=== PATIENT | female | born 1935 | race Hispanic/Latino ===

== ENCOUNTER 2017-11-01 15:50 | Inpatient (IN) | payer MEDICARE ==
[~2017-11-01] VITALS: Ht 154.9 cm; Wt 75.1 kg
[~2017-11-01 15:50] MED LIST: AEC81 PO; ALLO300T2 PO; CALC-190 PO; CARB1TAB20 PO; CLOP75TA32 PO; DULO20CA17 PO; ISOS30TA6 PO; LIOT5TAB8 PO; LISI10TA7 PO; METO100T14 PO; MIRT7.5T11 PO; NIAC-8 PO; PANT40TA PO; PIOG30TA26 PO; PYRI50TA9 PO; RANO500T2 PO; SAXA5TAB PO; SIMV10TA6 PO; TRAZ-144 PO
[2017-11-01 16:50] LABS: BASOPHILS % (AUTO) 0.2 % (0.0-5.0); EOSINOPHILS % (AUTO) 2.3 % (0.0-8.0); HEMATOCRIT 24.4 % (36-48); LYMPHOCYTES % (AUTO) 12.8 % (21.0-51.0); MEAN CORPUSCULAR HEMOGLOBIN 36.1 pg (27.0-33.0); MEAN CORPUSCULAR HGB CONC 32.7 g/dL (32.0-36.0); MEAN CORPUSCULAR VOLUME 110.3 fL (79-99); MONOCYTES % (AUTO) 6.8 % (3.0-13.0); NEUTROPHILS % (AUTO) 77.9 % (40.0-77.0); NUCLEATED RED BLOOD CELLS 0.2 % (0.0-0.19); PLATELET COUNT (AUTO) 153 K/uL (130-400); RED BLOOD CELL COUNT(AUTO) 2.21 MIL/uL (4.00-5.50); RED CELL DISTRIBUTION WIDTH 18.4 % (11.0-15.5); WHITE BLOOD COUNT (AUTO) 7.6 K/uL (4.8-10.8)
[2017-11-01 16:57] LABS: CREATININE 7.4 mg/dL (0.5-1.5); POTASSIUM 4.8 mmol/L (3.5-5.1)
[2017-11-01 17:02] LABS: ALBUMIN 2.7 g/dL (3.5-5.0); BILIRUBIN,TOTAL 0.6 mg/dL (0.2-1.0); TOTAL PROTEIN, SERUM 6.9 g/dL (6.0-8.3)
[2017-11-01] MEDS ORDERED: MORPHINE SULFATE 2 MG/ML 1ML SYG ONE (18:58)
[2017-11-02 05:41] LABS: BASOPHILS % (AUTO) 0.7 % (0.0-5.0); EOSINOPHILS % (AUTO) 4.2 % (0.0-8.0); HEMATOCRIT 23.4 % (36-48); LYMPHOCYTES % (AUTO) 13.8 % (21.0-51.0); MEAN CORPUSCULAR HEMOGLOBIN 35.8 pg (27.0-33.0); MEAN CORPUSCULAR HGB CONC 32.4 g/dL (32.0-36.0); MEAN CORPUSCULAR VOLUME 110.6 fL (79-99); MONOCYTES % (AUTO) 5.9 % (3.0-13.0); NEUTROPHILS % (AUTO) 75.4 % (40.0-77.0); NUCLEATED RED BLOOD CELLS 0.1 % (0.0-0.19); PLATELET COUNT (AUTO) 148 K/uL (130-400); RED BLOOD CELL COUNT(AUTO) 2.11 MIL/uL (4.00-5.50); RED CELL DISTRIBUTION WIDTH 19.1 % (11.0-15.5); WHITE BLOOD COUNT (AUTO) 7.1 K/uL (4.8-10.8)
[2017-11-02 05:55] LABS: CARBON DIOXIDE 31 mmol/L (21-32); CHLORIDE 99 mmol/L (101-111); CREATININE 7.4 mg/dL (0.5-1.5); GLOMERULAR FILTR. RATE CALC 6 mL/min (>60); GLUCOSE,RANDOM 118 mg/dL (70-105); POTASSIUM 5.1 mmol/L (3.5-5.1); SODIUM SERUM 137 mmol/L (136-145)
[2017-11-02 05:57] LABS: UREA NITROGEN, BLOOD 81 mg/dL (7-18)
[2017-11-02 06:07] LABS: ALBUMIN 2.8 g/dL (3.5-5.0); ASPARTATE AMINOTRANSFERASE 17 U/L (10-37); BILIRUBIN,TOTAL 0.6 mg/dL (0.2-1.0); TOTAL PROTEIN, SERUM 6.8 g/dL (6.0-8.3)
[2017-11-02 06:09] LABS: ALANINE AMINOTRANSFERASE < 6 U/L (12-78)
[2017-11-02] MEDS ORDERED: SODIUM CHLORIDE 0.9% 1000ML 1,000 ML IV ONE (13:10)
[2017-11-02] MEDS ORDERED: SODIUM CHLORIDE 0.9% 250 ML IV ONE (13:11)
[2017-11-02] MEDS ORDERED: ALBUMIN (HUMAN) 25% 100 ML IV PRN (14:30)
[2017-11-02] MEDS ORDERED: 0.9% SODIUM CHLORIDE 250 ML IV BAG IV PRN (14:30)
[2017-11-02] MEDS ORDERED: SODIUM CHLORIDE 0.9% 1000ML 1,000 ML IV PRN (14:30)
[2017-11-02] MEDS ORDERED: EPOETIN ALFA 10,000 UNIT/ML VIAL SQ SCH (15:00)
[2017-11-02 17:00] VITALS: BP 163/74
[2017-11-02] MEDS ORDERED: LISI10TA7 PO (19:25)
[2017-11-02 21:00] VITALS: BP 147/71
[2017-11-03] VITALS (7 sets, daily range): BP systolic 116–155; BP diastolic 44–80
[2017-11-03 04:08] LABS: HEMATOCRIT 29.6 % (36-48); MEAN CORPUSCULAR HEMOGLOBIN 34.4 pg (27.0-33.0); MEAN CORPUSCULAR HGB CONC 34.2 g/dL (32.0-36.0); MEAN CORPUSCULAR VOLUME 100.5 fL (79-99); NUCLEATED RED BLOOD CELLS 0.1 % (0.0-0.19); PLATELET COUNT (AUTO) 148 K/uL (130-400); RED BLOOD CELL COUNT(AUTO) 2.95 MIL/uL (4.00-5.50); RED CELL DISTRIBUTION WIDTH 21.9 % (11.0-15.5); WHITE BLOOD COUNT (AUTO) 9.2 K/uL (4.8-10.8)
[2017-11-03 04:26] LABS: CREATININE 4.3 mg/dL (0.5-1.5); PHOSPHORUS 5.7 mg/dL (2.5-4.9); POTASSIUM 4.2 mmol/L (3.5-5.1)
[2017-11-03 04:53] LABS: BAND NEUTROPHILS % (MANUAL) 4 % (0-2); EOSINOPHILS % (MANUAL) 2 % (1-6); LYMPHOCYTES % (MANUAL) 6 % (22-44); MAN.DIFF COMMENT-IMPRESSION MANUAL DIFFERENTIAL; MONOCYTES % (MANUAL) 3 % (2-9); PLATELET MORPHOLOGY COMMENT ADEQUATE; SEGMENTED NEUTROPHILS % 85 % (40-70)
[2017-11-03] MEDS ORDERED: EPOETIN ALFA 10,000 UNIT/ML VIAL SQ SCH (19:15)
[2017-11-04 03:23] VITALS: BP 128/60
[2017-11-04] MEDS ORDERED: PHARMACY COMMUNICATION MISC SCH (05:00)
[2017-11-04] MEDS ORDERED: ALPRAZOLAM 0.25 MG TABLET PO PRN (06:45)
[2017-11-04 08:00] VITALS: BP 147/57
[2017-11-04] MEDS: DULOXETINE HCL 20 MG PO SCH (09:00)
[2017-11-04] MEDS: LIOTHYRONINE SODIUM 5 MCG PO SCH (09:00)
[2017-11-04] MEDS: ASPIRIN 81 MG EC TAB PO SCH (09:15)
[2017-11-04] MEDS: METOPROLOL TARTRATE 50 MG TAB PO SCH ×2 (09:16→20:09)
[2017-11-04] MEDS: PYRIDOXINE HCL 50 MG TABLET PO SCH (09:16)
[2017-11-04] MEDS: CLOPIDOGREL BISULFATE 75 MG TAB PO SCH (09:16)
[2017-11-04] MEDS: ISOSORBIDE MONO 30MG TAB SR PO SCH (09:16)
[2017-11-04] MEDS: RANOLAZINE 500 MG TAB.SR.12H PO SCH ×2 (09:16→20:09)
[2017-11-04] MEDS: LISINOPRIL 10 MG TABLET PO SCH (09:17)
[2017-11-04] MEDS: PANTOPRAZOLE SODIUM 40 MG TABLET.DR PO SCH (09:17)
[2017-11-04] MEDS: PIOGLITAZONE HCL 30 MG TAB PO SCH (09:27)
[2017-11-04 11:00] VITALS: BP 132/65
[2017-11-04] MEDS ORDERED: ACETAMINOPHEN-CODEINE 300/30MG TAB PO PRN ×2 (15:30)
[2017-11-04 16:00] VITALS: BP 141/73
[2017-11-04 19:00] VITALS: BP 122/84
[2017-11-04] MEDS ORDERED: ALLOPURINOL 300 MG TABLET PO SCH (21:00)
[2017-11-04] MEDS ORDERED: ATORVASTATIN CALCIUM 10 MG TABLET PO SCH (21:00)
[2017-11-04] MEDS ORDERED: NIACIN 500 MG SRTAB PO SCH (21:00)
[2017-11-04] MEDS ORDERED: MIRTAZAPINE 15 MG TABLET PO SCH (21:00)
[2017-11-04] MEDS ORDERED: TRAZODONE HCL 50 MG TAB PO SCH (21:00)
[2017-11-04 23:00] VITALS: BP 103/51
[2017-11-05 03:00] VITALS: BP 113/53
[2017-11-05] MEDS ORDERED: LACTULOSE 20 GM/30 ML UDCUP PO PRN ×2 (07:00→09:30)
[2017-11-05 07:05] VITALS: BP 106/44
[2017-11-05] MEDS: RANOLAZINE 500 MG TAB.SR.12H PO SCH (08:51)
[2017-11-05] MEDS: CLOPIDOGREL BISULFATE 75 MG TAB PO SCH (08:51)
[2017-11-05] MEDS: PANTOPRAZOLE SODIUM 40 MG TABLET.DR PO SCH (08:52)
[2017-11-05] MEDS: ISOSORBIDE MONO 30MG TAB SR PO SCH (08:52)
[2017-11-05] MEDS: ASPIRIN 81 MG EC TAB PO SCH (08:52)
[2017-11-05] MEDS: LISINOPRIL 10 MG TABLET PO SCH (08:52)
[2017-11-05] MEDS: METOPROLOL TARTRATE 50 MG TAB PO SCH (08:52)
[2017-11-05] MEDS: PYRIDOXINE HCL 50 MG TABLET PO SCH (08:53)
[2017-11-05] MEDS: LIOTHYRONINE SODIUM 5 MCG PO SCH (08:56)
[2017-11-05] MEDS: PIOGLITAZONE HCL 30 MG TAB PO SCH (08:56)
[2017-11-05] MEDS: DULOXETINE HCL 20 MG PO SCH (08:56)
[2017-11-05 11:08] VITALS: BP 109/42
[2017-11-05 15:00] VITALS: BP 112/51
== END 2017-11-05 18:33 | DRG 811 ==
LOC: EDH 15:50 → EDHIP 18:37 → INTOOBSV 18:37 → OBSVTOIN 18:37 → 3AH 11-02 16:22 → 3BH 11-03 05:13
PROVIDERS: ADMIT Internal Medicine; ATTEND Internal Medicine
PROC: 30233N1 Transfusion of Nonautologous Red Blood Cells into Peripheral Vein, Percutaneous Approach (ICD-10-PCS; principal; 2017-11-02)
PROC: 5A1D70Z Performance of Urinary Filtration, Intermittent, Less than 6 Hours Per Day (ICD-10-PCS; 2017-11-02)
PROC: 5A1D70Z Performance of Urinary Filtration, Intermittent, Less than 6 Hours Per Day (ICD-10-PCS; 2017-11-03)
DX: D64.9 Anemia, unspecified (principal); N18.6 End stage renal disease; E11.22 Type 2 diabetes mellitus with diabetic chronic kidney disease; E11.51 Type 2 diabetes mellitus with diabetic peripheral angiopathy without gangrene; I12.0 Hypertensive chronic kidney disease with stage 5 chronic kidney disease or end stage renal disease; Z99.2 Dependence on renal dialysis; F03.90 Unspecified dementia, unspecified severity, without behavioral disturbance, psychotic disturbance, mood disturbance, and anxiety; F41.9 Anxiety disorder, unspecified; E78.5 Hyperlipidemia, unspecified; I25.10 Atherosclerotic heart disease of native coronary artery without angina pectoris; Z90.710 Acquired absence of both cervix and uterus; Z95.1 Presence of aortocoronary bypass graft
CPT/HCPCS: 36415; 71045; 73560; 80048; 80053; 82140; 82550; 82948; 83880; 84100; 84484; 85025; 86850; 86900; 86901; 86922; 87804; 90935; 93005; 97039; J0885; J7030; P9016

== ENCOUNTER 2017-11-23 08:49 | Inpatient (IN) | payer MEDICARE ==
[~2017-11-23] VITALS: Ht 152.4 cm; Wt 73.1 kg
[2017-11-23 09:17] LABS: BASOPHILS % (AUTO) 0.9 % (0.0-5.0); EOSINOPHILS % (AUTO) 2.2 % (0.0-8.0); HEMATOCRIT 22.3 % (36-48); MEAN CORPUSCULAR HEMOGLOBIN 34.8 pg (27.0-33.0); MEAN CORPUSCULAR HGB CONC 32.9 g/dL (32.0-36.0); MEAN CORPUSCULAR VOLUME 105.9 fL (79-99); MONOCYTES % (AUTO) 9.7 % (3.0-13.0); NEUTROPHILS % (AUTO) 66.2 % (40.0-77.0); NUCLEATED RED BLOOD CELLS 0.5 % (0.0-0.19); PLATELET COUNT (AUTO) 165 K/uL (130-400); RED BLOOD CELL COUNT(AUTO) 2.11 MIL/uL (4.00-5.50); RED CELL DISTRIBUTION WIDTH 23.7 % (11.0-15.5); WHITE BLOOD COUNT (AUTO) 4.8 K/uL (4.8-10.8)
[2017-11-23 09:25] LABS: CREATININE 2.8 mg/dL (0.5-1.5); POTASSIUM 3.1 mmol/L (3.5-5.1)
[2017-11-23 09:29] LABS: INR 1.28 (0.85-1.15); PROTHROMBIN TIME 13.4 SEC (9.6-11.6)
[2017-11-23 09:38] LABS: ALBUMIN 2.9 g/dL (3.5-5.0); BILIRUBIN,TOTAL 0.8 mg/dL (0.2-1.0); CREATINE KINASE MB 0.9 ng/mL (0.5-3.6); TOTAL PROTEIN, SERUM 6.9 g/dL (6.0-8.3)
[2017-11-23] MEDS ORDERED: ASPIRIN 81MG TAB.CHEW ONE (13:44)
[2017-11-23 14:52] LABS: CREATINE KINASE MB 0.7 ng/mL (0.5-3.6); TROPONIN I 0.06 ng/mL (0.00-0.06)
[2017-11-23 15:14] VITALS: BP 149/69
[2017-11-23] MEDS ORDERED: TRAMADOL HCL 50 MG TABLET PO PRN (16:00)
[2017-11-23 16:28] VITALS: BP 161/74
[2017-11-23] MEDS: CILOSTAZOL 100 MG TAB PO SCH (16:50)
[2017-11-23 19:50] LABS: CREATINE KINASE MB 0.7 ng/mL (0.5-3.6); TROPONIN I 0.06 ng/mL (0.00-0.06)
[2017-11-23 20:00] VITALS: BP 142/65
[2017-11-23] MEDS ORDERED: NIACIN 500 MG SRTAB PO SCH (21:00)
[2017-11-23] MEDS ORDERED: ATORVASTATIN CALCIUM 10 MG TABLET PO SCH (21:00)
[2017-11-23] MEDS: CARBIDOPA-LEVODOPA 25-100 TAB PO SCH (21:12)
[2017-11-23] MEDS ORDERED: SODIUM CHLORIDE 0.9% 250 ML IV ONE (22:42)
[2017-11-23 23:31] VITALS: BP 151/63
[2017-11-24] MEDS ORDERED: HEPARIN SODIUM 5000UNIT/ML 1ML VIAL IJ PRN (01:15)
[2017-11-24] MEDS ORDERED: 0.9% SODIUM CHLORIDE 250 ML IV BAG IV PRN (01:15)
[2017-11-24] MEDS ORDERED: SODIUM CHLORIDE 0.9% 1000ML 1,000 ML IV PRN (01:15)
[2017-11-24] MEDS ORDERED: ALBUMIN (HUMAN) 25% 100 ML IV PRN (01:15)
[2017-11-24 04:00] VITALS: BP 154/60
[2017-11-24] MEDS ORDERED: LIOTHYRONINE 5 MCG PO SCH (06:30)
[2017-11-24] MEDS: CILOSTAZOL 100 MG TAB PO SCH ×2 (07:01→17:18)
[2017-11-24] MEDS ORDERED: PANTOPRAZOLE SODIUM 40 MG TABLET.DR PO SCH (07:30)
[2017-11-24 07:37] VITALS: BP 158/88
[2017-11-24] MEDS: CARBIDOPA-LEVODOPA 25-100 TAB PO SCH ×2 (08:04→13:51)
[2017-11-24 08:18] LABS: CREATININE 2.8 mg/dL (0.5-1.5); POTASSIUM 4.1 mmol/L (3.5-5.1)
[2017-11-24 08:35] LABS: CREATINE KINASE MB 0.8 ng/mL (0.5-3.6); TROPONIN I 0.07 ng/mL (0.00-0.06)
[2017-11-24] MEDS ORDERED: PIOGLITAZONE HCL 30 MG TAB PO SCH (09:00)
[2017-11-24] MEDS ORDERED: THIAMINE HCL 100 MG TABLET PO SCH (09:00)
[2017-11-24] MEDS ORDERED: ALLOPURINOL 300 MG TABLET PO SCH (09:00)
[2017-11-24] MEDS ORDERED: DULOXETINE HCL 20 MG PO SCH (09:00)
[2017-11-24] MEDS ORDERED: ASPIRIN 81 MG EC TAB PO SCH (09:00)
[2017-11-24] MEDS ORDERED: CALCIUM 600 + VITAMIN D 400 TABLET PO SCH (09:00)
[2017-11-24] MEDS ORDERED: ISOSORBIDE MONO 30MG TAB SR PO SCH (09:00)
[2017-11-24] MEDS ORDERED: FOLIC ACID 1 MG TABLET PO SCH (09:00)
[2017-11-24] MEDS ORDERED: CYANOCOBALAMIN (VITAMIN B-12) 1000 MCG/ML 1ML VIAL SQ SCH (09:00)
[2017-11-24] MEDS ORDERED: LOSARTAN 50 MG TABLET PO SCH (09:00)
[2017-11-24] MEDS ORDERED: SAXAGLIPTIN 5 MG PO SCH (09:00)
[2017-11-24 11:17] VITALS: BP 127/54
== END 2017-11-24 17:54 | DRG 291 ==
LOC: EDH 08:49 → EDHIP 11:10 → 4BH 14:44
PROVIDERS: ADMIT Internal Medicine; ATTEND Internal Medicine
PROC: 5A1D70Z Performance of Urinary Filtration, Intermittent, Less than 6 Hours Per Day (ICD-10-PCS; principal; 2017-11-23)
PROC: 30233N1 Transfusion of Nonautologous Red Blood Cells into Peripheral Vein, Percutaneous Approach (ICD-10-PCS; 2017-11-23)
DX: I13.2 Hypertensive heart and chronic kidney disease with heart failure and with stage 5 chronic kidney disease, or end stage renal disease (principal); I50.33 Acute on chronic diastolic (congestive) heart failure; E11.22 Type 2 diabetes mellitus with diabetic chronic kidney disease; G20 Parkinson's disease; N18.6 End stage renal disease; R07.89 Other chest pain; I25.119 Atherosclerotic heart disease of native coronary artery with unspecified angina pectoris; D64.9 Anemia, unspecified; E03.9 Hypothyroidism, unspecified; E78.5 Hyperlipidemia, unspecified; E87.6 Hypokalemia; F41.9 Anxiety disorder, unspecified; Z82.49 Family history of ischemic heart disease and other diseases of the circulatory system; Z87.11 Personal history of peptic ulcer disease; Z95.5 Presence of coronary angioplasty implant and graft; Z99.2 Dependence on renal dialysis; I25.2 Old myocardial infarction
CPT/HCPCS: 36415; 36430; 71045; 80048; 80053; 82270; 82550; 82553; 82948; 83874; 83880; 84484; 85025; 85610; 85730; 86850; 86900; 86901; 86922; 90935; 93005; 93971; J3420; J7030; P9016

== ENCOUNTER 2017-12-09 21:14 | Inpatient (IN) | payer MEDICARE ==
[~2017-12-09] VITALS: Ht 157.5 cm; Wt 73.4 kg
[2017-12-09] MEDS ORDERED: NITROGLYCERIN 1GM/1 INCH PACKET TD ONE (22:03)
[2017-12-09 22:14] LABS: CREATININE 2.9 mg/dL (0.5-1.5); POTASSIUM 3.5 mmol/L (3.5-5.1)
[2017-12-09 22:15] LABS: BASOPHILS % (AUTO) 0.5 % (0.0-5.0); EOSINOPHILS % (AUTO) 2.9 % (0.0-8.0); HEMATOCRIT 23.6 % (36-48); LYMPHOCYTES % (AUTO) 18.7 % (21.0-51.0); MEAN CORPUSCULAR HEMOGLOBIN 35.3 pg (27.0-33.0); MEAN CORPUSCULAR HGB CONC 32.7 g/dL (32.0-36.0); MEAN CORPUSCULAR VOLUME 107.9 fL (79-99); MONOCYTES % (AUTO) 9.6 % (3.0-13.0); NEUTROPHILS % (AUTO) 68.3 % (40.0-77.0); PLATELET COUNT (AUTO) 195 K/uL (130-400); RED BLOOD CELL COUNT(AUTO) 2.19 MIL/uL (4.00-5.50); RED CELL DISTRIBUTION WIDTH 26.4 % (11.0-15.5); WHITE BLOOD COUNT (AUTO) 4.6 K/uL (4.8-10.8)
[2017-12-09 22:17] LABS: INR 1.08 (0.85-1.15); PARTIAL THROMBOPLASTIN TIME 27.5 SEC (26.3-35.5); PROTHROMBIN TIME 11.3 SEC (9.6-11.6)
[2017-12-09 22:28] LABS: ALBUMIN 2.9 g/dL (3.5-5.0); BILIRUBIN,TOTAL 0.7 mg/dL (0.2-1.0); CREATINE KINASE MB 0.6 ng/mL (0.5-3.6); TOTAL PROTEIN, SERUM 7.6 g/dL (6.0-8.3)
[2017-12-09] MEDS ORDERED: ONDANSETRON HCL 4 MG/2 ML VIAL ONE (23:36)
[2017-12-09] MEDS ORDERED: MORPHINE SULFATE 2 MG/ML 1ML SYG ONE (23:37)
[2017-12-10] VITALS (7 sets, daily range): BP systolic 87–115; BP diastolic 42–57
[2017-12-10] MEDS ORDERED: MORPHINE SULFATE 2 MG/ML 1ML SYG IVP PRN (01:30)
[2017-12-10] MEDS ORDERED: HYDRALAZINE HCL 20 MG/ML VIAL IV PRN (01:30)
[2017-12-10] MEDS: NITROGLYCERIN 1GM/1 INCH PACKET TD SCH ×2 (03:00→09:00)
[2017-12-10 04:39] LABS: HEMATOCRIT 22.1 % (36-48); MEAN CORPUSCULAR HEMOGLOBIN 36.2 pg (27.0-33.0); MEAN CORPUSCULAR VOLUME 106.3 fL (79-99); PLATELET COUNT (AUTO) 166 K/uL (130-400); RED BLOOD CELL COUNT(AUTO) 2.07 MIL/uL (4.00-5.50); RED CELL DISTRIBUTION WIDTH 25.6 % (11.0-15.5); WHITE BLOOD COUNT (AUTO) 4.8 K/uL (4.8-10.8)
[2017-12-10] MEDS ORDERED: SODIUM CHLORIDE 0.9% 500ML 500 ML IV ONE (04:47)
[2017-12-10 04:48] LABS: CREATININE 3.1 mg/dL (0.5-1.5); POTASSIUM 3.8 mmol/L (3.5-5.1)
[2017-12-10 07:41] LABS: CREATINE KINASE MB 0.9 ng/mL (0.5-3.6); TROPONIN I 0.22 ng/mL (0.00-0.06)
[2017-12-10] MEDS ORDERED: CEFTR1IV IV (08:17)
[2017-12-10] MEDS ORDERED: CLOP75TA32 PO (08:17)
[2017-12-10] MEDS ORDERED: NIAC500SR PO (08:17)
[2017-12-10] MEDS ORDERED: PIOG30TA26 PO (08:17)
[2017-12-10] MEDS ORDERED: METO100T14 PO (08:17)
[2017-12-10] MEDS ORDERED: SAXA5TAB PO (08:17)
[2017-12-10] MEDS ORDERED: LIOT5TAB8 PO (08:17)
[2017-12-10] MEDS ORDERED: CARB1TAB41 PO (08:17)
[2017-12-10] MEDS ORDERED: ACET-2900 PO (08:17)
[2017-12-10] MEDS ORDERED: LOSA50TA37 PO (08:17)
[2017-12-10] MEDS ORDERED: CYAN10007 IJ (08:17)
[2017-12-10] MEDS ORDERED: FOLI1TAB15 PO (08:17)
[2017-12-10] MEDS ORDERED: DUONEB IH (08:17)
[2017-12-10] MEDS ORDERED: ATOR10TA69 PO (08:17)
[2017-12-10] MEDS ORDERED: CILO100T PO (08:17)
[2017-12-10] MEDS ORDERED: ALLO300T2 PO (08:17)
[2017-12-10] MEDS ORDERED: DULO20CA17 PO (08:17)
[2017-12-10] MEDS ORDERED: PYRI50TA15 PO (08:17)
[2017-12-10] MEDS ORDERED: PANT40TA PO (08:17)
[2017-12-10] MEDS ORDERED: ISOS30TA6 PO (08:17)
[2017-12-10] MEDS ORDERED: ASPI-1197 PO (08:17)
[2017-12-10] MEDS ORDERED: LISI10TA7 PO (08:17)
[2017-12-10] MEDS ORDERED: PANTOPRAZOLE 40 MG/VIAL IVP SCH (09:00)
[2017-12-10] MEDS: ENOXAPARIN SODIUM 30 MG/0.3 ML SQ SCH (09:45)
[2017-12-10 10:43] LABS: HEMATOCRIT 22.3 % (36-48)
[2017-12-10] MEDS: CARBIDOPA-LEVODOPA 25-100 TAB PO SCH ×2 (13:14→20:29)
[2017-12-10] MEDS: MIDODRINE HCL 5 MG TABLET PO SCH ×2 (14:00→20:29)
[2017-12-10] MEDS ORDERED: MIDODRINE HCL 5 MG TABLET PO SCH (14:00)
[2017-12-10] MEDS: ACETAMINOPHEN 325 MG TAB PO PRN (14:32)
[2017-12-10 15:36] LABS: CREATINE KINASE MB 2.5 ng/mL (0.5-3.6); TROPONIN I 0.52 ng/mL (0.00-0.06)
[2017-12-10] MEDS: NIACIN 500 MG SRTAB PO SCH (20:28)
[2017-12-10] MEDS: ATORVASTATIN CALCIUM 10 MG TABLET PO SCH (20:28)
[2017-12-11 03:53] VITALS: BP 108/57
[2017-12-11] MEDS: ACETAMINOPHEN 325 MG TAB PO PRN (03:54)
[2017-12-11 04:41] LABS: HEMATOCRIT 24.7 % (36-48); MEAN CORPUSCULAR HEMOGLOBIN 34.5 pg (27.0-33.0); MEAN CORPUSCULAR VOLUME 104.7 fL (79-99); PLATELET COUNT (AUTO) 173 K/uL (130-400); RED BLOOD CELL COUNT(AUTO) 2.36 MIL/uL (4.00-5.50); RED CELL DISTRIBUTION WIDTH 25.4 % (11.0-15.5); WHITE BLOOD COUNT (AUTO) 3.9 K/uL (4.8-10.8)
[2017-12-11 05:10] LABS: CREATININE 3.9 mg/dL (0.5-1.5); POTASSIUM 4.6 mmol/L (3.5-5.1)
[2017-12-11] MEDS: LIOTHYRONINE SODIUM 5 MCG PO SCH (05:34)
[2017-12-11 07:20] VITALS: BP 127/61
[2017-12-11] MEDS: FOLIC ACID 1 MG TABLET PO SCH (07:42)
[2017-12-11] MEDS: PANTOPRAZOLE SODIUM 40 MG TABLET.DR PO SCH (07:42)
[2017-12-11] MEDS: CARBIDOPA-LEVODOPA 25-100 TAB PO SCH ×3 (07:42→20:31)
[2017-12-11] MEDS: MIDODRINE HCL 5 MG TABLET PO SCH ×3 (07:42→20:31)
[2017-12-11] MEDS: DULOXETINE HCL 20 MG PO SCH (07:43)
[2017-12-11] MEDS: ENOXAPARIN SODIUM 30 MG/0.3 ML SQ SCH (07:43)
[2017-12-11 11:09] VITALS: BP 123/57
[2017-12-11 16:11] VITALS: BP 132/64
[2017-12-11 19:56] VITALS: BP 114/53
[2017-12-11] MEDS: NIACIN 500 MG SRTAB PO SCH (20:31)
[2017-12-11] MEDS: RANOLAZINE 500 MG TAB.SR.12H PO SCH (20:31)
[2017-12-11] MEDS: ATORVASTATIN CALCIUM 10 MG TABLET PO SCH (20:31)
[2017-12-12] VITALS: BP 111/69
[2017-12-12 03:53] VITALS: BP 136/60
[2017-12-12] MEDS: PANTOPRAZOLE SODIUM 40 MG TABLET.DR PO SCH (06:24)
[2017-12-12] MEDS: LIOTHYRONINE SODIUM 5 MCG PO SCH (06:30)
[2017-12-12 07:17] VITALS: BP 135/62
[2017-12-12] MEDS: MIDODRINE HCL 5 MG TABLET PO SCH (08:16)
[2017-12-12] MEDS: DULOXETINE HCL 20 MG PO SCH (09:00)
[2017-12-12] MEDS: CARBIDOPA-LEVODOPA 25-100 TAB PO SCH (09:00)
[2017-12-12] MEDS: RANOLAZINE 500 MG TAB.SR.12H PO SCH (09:00)
[2017-12-12] MEDS: ENOXAPARIN SODIUM 30 MG/0.3 ML SQ SCH (09:00)
[2017-12-12] MEDS: FOLIC ACID 1 MG TABLET PO SCH (09:00)
[2017-12-12 11:45] VITALS: BP 111/67
[2017-12-12] MEDS ORDERED: ALBUMIN (HUMAN) 25% 100 ML IV PRN (12:00)
[2017-12-12] MEDS ORDERED: 0.9% SODIUM CHLORIDE 250 ML IV BAG IV PRN (12:00)
[2017-12-12] MEDS ORDERED: HEPARIN SODIUM 5000UNIT/ML 1ML VIAL IJ PRN (12:00)
[2017-12-12] MEDS ORDERED: SODIUM CHLORIDE 0.9% 1000ML 1,000 ML IV PRN (12:00)
[2017-12-12 16:30] VITALS: BP 128/67
[2017-12-12] MEDS ORDERED: EPOETIN ALFA 10,000 UNIT/ML VIAL SQ ONE (21:00)
== END 2017-12-12 18:20 | DRG 682 ==
LOC: EDH 21:14 → EDHIP 23:46 → OBSVTOIN 23:46 → 2AH 12-10 00:30
PROVIDERS: ADMIT Internal Medicine; ATTEND Internal Medicine
PROC: 30233N1 Transfusion of Nonautologous Red Blood Cells into Peripheral Vein, Percutaneous Approach (ICD-10-PCS; principal; 2017-12-10)
PROC: 5A1D70Z Performance of Urinary Filtration, Intermittent, Less than 6 Hours Per Day (ICD-10-PCS; 2017-12-12)
DX: I12.0 Hypertensive chronic kidney disease with stage 5 chronic kidney disease or end stage renal disease (principal); N18.6 End stage renal disease; E46 Unspecified protein-calorie malnutrition; E11.22 Type 2 diabetes mellitus with diabetic chronic kidney disease; I95.89 Other hypotension; G20 Parkinson's disease; D63.8 Anemia in other chronic diseases classified elsewhere; R07.9 Chest pain, unspecified; I25.10 Atherosclerotic heart disease of native coronary artery without angina pectoris; I44.7 Left bundle-branch block, unspecified; Z86.73 Personal history of transient ischemic attack (TIA), and cerebral infarction without residual deficits; Z68.29 Body mass index [BMI] 29.0-29.9, adult; Z99.2 Dependence on renal dialysis
CPT/HCPCS: 36415; 36430; 71045; 80048; 80053; 82550; 82553; 82948; 83874; 84484; 85014; 85018; 85025; 85027; 85610; 85730; 86850; 86900; 86901; 86922; 90935; 93005; C9113; J0885; J1650; J2405; J7030; J7040; P9016